=== PATIENT | male | born 1985 | race Caucasian/White ===

== ENCOUNTER 2022-05-02 15:14 | Emergency (ER) | payer OTHER, SELFPAY ==
[2022-05-02 15:17] VITALS: BP 123/84; PULSE 85; RESP 16; TEMP 36.4; O2SAT 94; BMI 33.7
--- NOTE | 2022-05-02 16:02 | ED_ITS ---
HPI - Allergic Reaction General: Chief complaint: Allergic Reaction Stated complaint: STUNG TWICE/ TOOK EPIPEN Time Seen by Provider: 05/02/22 15:34 Source: patient and family Mode of arrival: ambulatory Limitations: no limitations History of Present Illness: HPI narrative: Patient is a 36-year-old male who presents to ED today following an allergic reaction and EpiPen administration. 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 Patient states he immediately felt dizzy, diaphoretic, and short of breath. He states following Epipen he feels much better and is essentially asymptomatic upon arrival to the ED. MD complaint: allergic reaction Onset (ago): hour(s) Exposure: insect bite (sting) Associated symptoms: Deny abdominal pain, dizziness, nausea or vomiting Treatment prior to arrival: epinephrine Previous Allergic Reaction History: anaphylaxis and angioedema Review of Systems Eyes: Denies: change in vision or blurry vision ENMT: Denies: throat pain, odynophagia, swelling of lips/tongue or oral sores Card: Denies: chest pain, palpitations, irregular heart rhythm, edema, lightheadedness, syncope or pre-syncope Resp: Denies: dyspnea GI: Denies: abdominal pain, nausea or vomiting Neuro: Denies: headache(s), numbness in extremities, weakness in extremities, sensory changes or dizziness Physical Exam Const: COMMON NORMALS: no acute distress, average body habitus, patient oriented x3, no limitations, healthy appearing, alert and well nourished ORIENTATION/CONSCIOUSNESS: Yes awake, Yes oriented to person, Yes oriented to place and Yes oriented to time HENMT: FACE & SINUS: normal facial exam (apart from documented) and other (sting jennifer to R side of face with minimal swelling) MOUTH: other (no angioedema) Resp: COMMON NORMALS: normal respiratory effort Neuro: JAYLEN COMA SCALE: document GCS findings [place] coma scale eye opening: Spontaneous [place] coma scale verbal response: Orientated [place] coma scale motor response: Obey commands [place] coma scale total score: 15 COMMON NORMALS: patient oriented x3 SENSORIUM/ORIENTATION: Yes alert, Yes oriented to person, Yes oriented to place and Yes oriented to time Skin: NARRATIVE SKIN EXAM: two sting gifford to R side of face and L anterior shoulder with minimal swelling Course Vital Signs: Vital signs: Vital Signs Temperature 97.6 F 05/02/22 15:17 Pulse Rate 85 05/02/22 15:17 Respiratory Rate 16 05/02/22 15:17 Blood Pressure 123/84 05/02/22 15:17 Pulse Oximetry 94 05/02/22 15:17 Oxygen Delivery Me thod 05/02/22 15:17 MDM - Allergic Reaction Medical Decision Making Patient is completely asymptomatic upon arrival. Vital signs are normal. He would like to go home. I told patient ideally we like to watch patient's following epinephrine administration for rebound reactions however patient does not want to stay that long. Recommend he monitor symptoms closely and contact 911 if he begins having any lip or tongue swelling, difficulty breathing, genevieve rtness of breath, or any other concerns he has. Patient verbalizes understanding. Epipen refill provided. Discharge Plan Discharge Patient Disposition: Home Clinical Impression: Allergic reaction to insect sting Qualifiers: Encounter type: initial encounter Injury intent: accidental or unintentional Qualified Code(s): T63.481A - Toxic effect of venom of other arthropod, accidental (unintentional), initial encounter Condition: Stable Prescriptions: New EpiPen 2-Nathaniel 0.3 mg/0.3 mL auto-injector 0.3 mg IM Q15M PRN (Reason: anaphylaxis) Qty: 2 0RF Rx Instructions: do not exceed 3 doses per episode Discharge Orders: Discharge ED (Routine); Ordered 05/02/22 Ordered By: Gabbi Beauchamp Referrals: Jimbo Rome MD [Primary Care Provider] - Patient Instructions: Epinephrine (By injection), Epinephrine Self-Injection Coding Level of Care Code ED Planning Assistant for Chg Fwd Exam Expanded Problem Focused
== END 2022-05-02 16:16 | disposition home or self-care (01) ==
PROVIDERS: Emergency Provider Physician Assistant; PCP Family Medicine
DX: T63.461A Toxic effect of venom of wasps, accidental (unintentional), initial encounter (principal)
CPT/HCPCS: 99283